=== PATIENT | female | born 1990 | race Caucasian/White ===

== ENCOUNTER 2017-05-13 11:57 | Emergency (ER) | payer OTHER ==
[2017-05-13 12:22] VITALS: BMI 26.4
[2017-05-13 12:24] VITALS: BP 105/49; PULSE 80; RESP 18; TEMP 98.8; O2SAT 100
[2017-05-13] MEDS ORDERED: Iohexol 240 (50 ml) PO ONE (13:04)
[2017-05-13] MEDS ORDERED: Sodium Chloride 0.9% 1,000 ML IV STA (13:04)
[2017-05-13] MEDS ORDERED: Iohexol 240 (50 ml) ONE (13:18)
--- NOTE | 2017-05-13 13:18 | ED PDOC ---
HPI: Abdomen Time Seen by Provider: 05/13/17 12:45 Chief Complaint (Nursing): Abdominal Pain Chief Complaint (Provider): abd pain History Per: Patient History/Exam Limitations: no limitations Onset/Duration Of Symptoms: Days (1 week) Additional Complaint(s): Pt. with left lower abd pain. Cramping pain. No numbness, tingles, pelvic pain , hip pain, nausea, vomit, diarrhea, headaches, dizziness. No back pain. Does strenuous work at [employer]. No dysuria. Past Medical History Reviewed: Nursing Documentation, Vital Signs Vital Signs: Last Vital Signs Temp 98.8 F 05/13/17 12:23 Pulse 80 05/13/17 12:23 Resp 18 05/13/17 12:23 BP 105/49 L 05/13/17 12:23 Pulse Ox 100 05/13/17 13:23 - Medical History PMH: No Chronic Diseases - Surgical History Surgical History: No Surg Hx - Family History Family History: States: Unknown Family Hx - Social History Current smoker - smoking cessation education provided: No Alcohol: None Drugs: Denies - Home Medications Home Medications: Ambulatory Orders Medication Instructions Recorded Ciprofloxacin/Ciprofloxa HCl 500 mg PO BID #14 tab 10/30/14 [Ciprofloxacin] Cyclobenzaprine HCl [Flexeril] 10 mg PO Q8 #20 tab 10/30/14 Naproxen [Naprosyn] 500 mg PO BID #20 tab 10/30/14 Ciprofloxacin HCl [Cipro] 500 mg PO BID #13 tab 06/07/15 Ondansetron [Zofran] 4 mg PO Q8H PRN #10 tab 06/07/15 Ibuprofen [Motrin] 600 mg PO TID 7 Days tab 05/13/17 - Allergies Allergies/Adverse Reactions: Allergies Allergy/AdvReac Type Severity Reaction Status Date / Time No Known Allergies Allergy Verified 06/06/15 19:32 Review of Systems ROS Statement: Except As Marked, All Systems Reviewed And Found Negative Gastrointestinal: Positive for: Abdominal Pain Physical Exam - Reviewed Nursing Documentation Reviewed: Yes Vital Signs Reviewed: Yes - Physical Exam Appears: Positive for: Non-toxic, No Acute Distress Head Exam: Positive for: ATRAUMATIC, NORMAL INSPECTION, NORMOCEPHALIC Skin: Positive for: Normal Color, Warm, DRY Eye Exam: Positive for: EOMI, Normal appearance, PERRL ENT: Positive for: Normal ENT Inspection Neck: Positive for: Normal, Painless ROM, Supple Cardiovascular/Chest: Positive for: Regular Rate, Rhythm Respiratory: Positive for: CNT, Normal Breath Sounds Gastrointestinal/Abdominal: Positive for: Bowel Sounds, Soft, Tenderness (LLQ: no tenderness to pelvis; no hip tenderness) Back: Positive for: Normal Inspection. Negative for: L CVA Tenderness, R CVA Tenderness Extremity: Positive for: Normal ROM. Negative for: Tenderness, Pedal Edema Neurologic/Psych: Positive for: Alert, Oriented - Laboratory Results Result Diagrams: 05/13/17 13:28 05/13/17 13:28 Interpretation Of Abn Labs: urine wbc - ECG O2 Sat by Pulse Oximetry: 100 Pulse Ox Interpretation: Normal - CT Scan/US ct Other Rad Studies (CT/US): Read By Radiologist Other Rad Interpretation: no acute - Progress ED Course And Treament: 1619: Stable. AAOx3. Pain free. Tolerated PO. Fu with pcp. Disposition - Clinical Impression Clinical Impression: Abdominal pain - Patient ED Disposition Is Patient to be Admitted: No Counseled Patient/Family Regarding: Studies Performed, Diagnosis, Need For Followup, Rx Given - Disposition Referrals: [facility] [Outside] - 05/15/17 Disposition: Routine/Home Disposition Time: 16:20 Condition: STABLE Additional Instructions: Return if not better in 3 days. Prescriptions: Ibuprofen [Motrin] 600 mg PO TID 7 Days tab Instructions: Acute Abdominal Pain (ED) Forms: [employer] (Malay)
[2017-05-13 13:40] LABS: BASO % 0.4 % (0.0-2.0); EOS # 0.3 K/uL (0.0-0.7); EOS % 4.2 % (0.0-4.0); HEMATOCRIT 34.9 % (34.0-47.0); LYMPH % 12.4 % (20.0-40.0); MEAN CELL VOLUME 76.7 fl (81.0-99.0); MEAN CORPUSCULAR HEMOGLOBIN 24.1 pg (27.0-31.0); MEAN CORPUSCULAR HGB CONC 31.4 g/dL (33.0-37.0); MEAN PLATELET VOLUME 7.2 fl (7.2-11.7); MONO # 0.6 K/uL (0.0-0.8); MONO % 6.9 % (0.0-10.0); NEUT # 6.2 K/uL (1.8-7.0); NEUT % 76.1 % (50.0-75.0); RED CELL DISTRIBUTION WIDTH 14.2 % (11.5-14.5); WHITE BLOOD COUNT 8.1 K/uL (4.8-10.8)
[2017-05-13 13:50] LABS: POTASSIUM 3.9 MMOL/L (3.6-5.0)
[2017-05-13 13:56] LABS: ALB/GLOB RATIO 1.1 (1.0-2.1); ALKALINE PHOSPHATASE 51 U/L (38-126); ALT/SGPT 26 U/L (9-52); AST/SGOT 13 U/L (14-36); BILIRUBIN,TOTAL 1.1 mg/dl (0.2-1.3); BLOOD UREA NITROGEN 6 mg/dl (7-17); CALCIUM 8.9 mg/dL (8.4-10.2); CARBON DIOXIDE 26 mmol/L (22-30); CHLORIDE 103 mmol/L (98-107); GFR AFRICAN-AMERICAN > 60; GLUCOSE,RANDOM 92 mg/dL (65-105); SODIUM 136 mmol/l (132-148); TOTAL PROTEIN 7.7 G/DL (6.3-8.2)
[2017-05-13 14:04] LABS: RBC URINE 13 /hpf (0-3); URINE BILIRUBIN NEGATIVE (NEGATIVE); URINE BLOOD NEGATIVE (NEGATIVE); URINE COLOR YELLOW (YELLOW); URINE GLUCOSE (UA) NEG (Normal); URINE KETONE NEGATIVE (NEGATIVE); URINE LEUKOCYTE ESTERASE LARGE Leu/uL (Negative); URINE PROTEIN NEGATIVE (NEGATIVE); URINE UROBILINOGEN 0.2-1.0 mg/dL (0.2-1.0); WBC URINE 10 /hpf (0-5)
[2017-05-13] MEDS ORDERED: Iohexol 300 100 ML IJ ONE (15:24)
--- NOTE | 2017-05-13 16:17 | CT ---
PROCEDURE: CT Abdomen and Pelvis with contrast HISTORY: abd pain COMPARISON: None. TECHNIQUE: Contrast dose: 95 mL Omnipaque 300 Radiation dose: Total exam DLP = 738 mGy-cm. This CT exam was performed using one or more of the following dose reduction techniques: Automated exposure control, adjustment of the mA and/or kV according to patient size, and/or use of iterative reconstruction technique. FINDINGS: LOWER THORAX: More superior images of lung bases included on this exam. A sub cm probably benign granuloma borders the lateral right pleural fissure Gas within a hiatal hernia suggested. A laparoscopic gastric band is in place as before. Immediately above it there is interval gas within the gastric fundus here and in the hiatal hernia seen at the lung base. LIVER: Unremarkable. No gross lesion or ductal dilatation. GALLBLADDER AND BILE DUCTS: Unremarkable. PANCREAS: Unremarkable. No gross lesion or ductal dilatation. SPLEEN: Unremarkable. ADRENALS: Unremarkable. No mass. KIDNEYS AND URETERS: Unremarkable. No hydronephrosis. No solid mass. VASCULATURE: Unremarkable. No aortic aneurysm. BOWEL: Unremarkable. No obstruction. No gross mural thickening. APPENDIX: Normal appendix. PERITONEUM: The prior free pelvic fluid has largely re- absorbed. No free air. LYMPH NODES: Unremarkable. No enlarged lymph nodes. BLADDER: Moderately distended-otherwise unremarkable REPRODUCTIVE: Left adnexal hypodensities pro most consistent with left ovarian physiological cystic changes. There are less notable hyperdensities in the right ovary. Unremarkable you BONES: No fracture seen. 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 Gas within the gastric fundal region and hiatal hernia as noted above. No bowel obstruction or free air. Prior pelvic free fluid has largely resolved. Since then the changes in each ovary are likely physiologic given patient's 27 years of age
== END 2017-05-13 16:39 | disposition home or self-care (01) ==
LOC: H.ER 11:57
DX: R10.9 Unspecified abdominal pain (principal)
CPT/HCPCS: 74177; 80053; 81003; 81025; 85025; 87086; 96361; 96374; 99282; J1885; J7040; Q9966; Q9967